=== PATIENT | female | born 1995 | race Caucasian/White ===

== ENCOUNTER 2023-05-10 14:13 | Inpatient (IN) | payer BC ==
[2023-05-10 14:29] VITALS: BMI 28.1
[2023-05-10] MEDS ORDERED: Acetaminophen 500 MG TAB PO PRN (14:58)
[2023-05-10] MEDS ORDERED: Diphenoxylate HCl/Atropine Tablet PO PRN (14:58)
[2023-05-10] MEDS ORDERED: hydrALAZINE 20 MG/ML VIAL SLOW IVP PRN (14:58)
[2023-05-10] MEDS ORDERED: Carboprost 250 MCG/ML AMP IM PRN (14:58)
[2023-05-10] MEDS ORDERED: Lidocaine 1% (PF) 30 ML VIAL SC PRN (14:58)
[2023-05-10] MEDS ORDERED: fentaNYL 50 mcg/mL 1 mL Vial SLOW IVP PRN (14:58)
[2023-05-10] MEDS ORDERED: Methylergonovine 0.2 MG/ML VIAL IM PRN (14:58)
[2023-05-10] MEDS ORDERED: Docusate 100 MG CAP PO PRN (14:58)
[2023-05-10] MEDS ORDERED: Misoprostol 200 MCG TAB PR PRN (14:58)
[2023-05-10] MEDS ORDERED: Promethazine HCl 25 MG/ML VIAL IM PRN ×2 (14:58→21:16)
[2023-05-10] MEDS ORDERED: Ibuprofen 800 MG TAB PO PRN (14:58)
[2023-05-10] MEDS ORDERED: Ondansetron PF 4 MG/2 ML Vial IVP PRN ×2 (14:58→21:16)
[2023-05-10] MEDS ORDERED: Oxytocin 30 units/NS 500 ML 500 ML IV SCH ×3 (15:00)
[2023-05-10 16:05] LABS: Hematocrit 36.6 % (34.9-44.5); Hemoglobin 12.6 g/dL (12.0-15.5); Mean Corpuscular HGB CONC 34.4 g/dL (32.0-36.0); Mean Corpuscular Hemoglobin 30.7 pg (27.0-33.0); Mean Corpuscular Volume 89.3 fl (81.6-98.3); Mean Platelet Volume 11.1 fl (7.4-10.4); Platelet Count 212 10x3/uL (150-450); RBC Distribution Width 13.1 % (11.5-14.5); White Blood Cell (WBC) Count 24.6 10x3/uL (3.5-10.5)
[2023-05-10 16:16] LABS: Syphilis Antibody Nonreactive (Nonreactive); Syphilis Antibody Index 0.07 S/CO (<1.00 Non-Reactive)
[2023-05-10 16:18] LABS: HBSAg Index 0.23 S/CO (0-0.99); Hep B Surf Ag - L&D Non-Reactive S/CO (NonReactive)
[2023-05-10] MEDS: Lactated Ringer's 1,000 ML IV SCH ×2 (19:13→20:47)
[2023-05-10] MEDS ORDERED: fentaNYL/Ropivacaine Epidural 100 ML ONE (20:36)
[2023-05-10] MEDS ORDERED: Moisturizing Cream (Eucerin) 113 GM JAR TOP PRN (21:16)
[2023-05-10] MEDS ORDERED: Lactated Ringer's 500 ML IV PRN (21:16)
[2023-05-10] MEDS ORDERED: diphenhydrAMINE 50 MG/ML VIAL IVP PRN (21:16)
[2023-05-10] MEDS ORDERED: Naloxone HCl 0.4 mg/ml Vial IVP PRN ×2 (21:16)
[2023-05-10] MEDS ORDERED: Acetaminophen 325 MG TAB PO PRN (21:16)
[2023-05-10] MEDS ORDERED: ePHEDrine Sulfate 50 MG/10 ML VIAL SLOW IVP PRN (21:16)
[2023-05-10] MEDS ORDERED: fentaNYL 2 mcg/Ropivacaine 0.2% Epidural 100 ML CADD EPIDURAL SCH (21:30)
[2023-05-10] MEDS ORDERED: Communication Order-Pharmacy FS SCH (21:30)
[2023-05-11] MEDS ORDERED: Dexmedetomidine 200 MCG/2 ML VIAL ONE (01:07)
[2023-05-11] MEDS ORDERED: Milk Of Magnesia 30 ML UDCUP PO PRN (05:17)
[2023-05-11] MEDS ORDERED: Benzocaine-Menthol 82.5 ML CAN TOP PRN (05:17)
[2023-05-11] MEDS ORDERED: Oxytocin 30 units/NS 500 ML 500 ML IV SCH (05:17)
[2023-05-11] MEDS ORDERED: HYDROcodone/Acetaminophen 5/325 mg Tablet PO PRN ×2 (05:17)
[2023-05-11] MEDS ORDERED: Misoprostol 200 MCG TAB VAG PRN (05:17)
[2023-05-11] MEDS ORDERED: Bisacodyl 10 MG SUPP PR PRN (05:17)
[2023-05-11] MEDS ORDERED: Boostrix 0.5 ML (Tdap) VIAL (>/=7 yrs of age) IM ONE (05:17)
[2023-05-11] MEDS ORDERED: hydrALAZINE 20 MG/ML VIAL SLOW IVP PRN (05:17)
[2023-05-11] MEDS ORDERED: Lanolin Ointment 7 GM TUBE TOP PRN (05:17)
[2023-05-11] MEDS ORDERED: Ibuprofen 800 MG TAB PO SCH (06:00)
[2023-05-11] MEDS: Ferrous Sulfate 325 MG TAB PO SCH (07:19)
[2023-05-11] MEDS: Docusate 100 MG CAP PO SCH (07:54)
[2023-05-11] MEDS: Prenatal Vitamin 1 TAB PO SCH (07:54)
[2023-05-11] MEDS: Ibuprofen 800 MG TAB PO SCH (16:12)
[2023-05-11] MEDS ORDERED: Bupivacaine 0.25% HCL 30 ML VIAL ONE (19:57)
[2023-05-12] MEDS: Ibuprofen 800 MG TAB PO SCH ×2 (00:17→08:59)
[2023-05-12] MEDS: Docusate 100 MG CAP PO SCH ×2 (00:17→08:57)
[2023-05-12] MEDS: Ferrous Sulfate 325 MG TAB PO SCH (08:32)
[2023-05-12 08:42] VITALS: BP 109/73; TEMP 98.8
[2023-05-12] MEDS: Prenatal Vitamin 1 TAB PO SCH (08:57)
== END 2023-05-12 13:20 | disposition home or self-care (01) | DRG 807 ==
LOC: CSHLD/OP 14:13 → CSHLD 15:14 → CSHPP 05-11 06:05
PROVIDERS: ADMIT Obstetrics & Gynecology; ATTEND Obstetrics & Gynecology
PROC: 10E0XZZ Delivery of Products of Conception, External Approach (ICD-10-PCS; principal; 2023-05-11)
PROC: 0UQMXZZ Repair Vulva, External Approach (ICD-10-PCS; 2023-05-11)
DX: O70.0 First degree perineal laceration during delivery (principal); Z37.0 Single live birth; Z3A.39 39 weeks gestation of pregnancy; Z91.040 Latex allergy status
CPT/HCPCS: 36415; 51702; 85027; 86780; 86850; 86900; 86901; 87340; 99285; J2590; J7120; S0020